=== PATIENT | female | born 1970 | race Caucasian/White ===

== ENCOUNTER 2020-08-24 11:28 | Outpatient (CLI) | payer OTHER, SELFPAY ==
--- NOTE | 2020-08-24 11:34 | MM_ITS ---
WS: [id number] BILATERAL DIGITAL SCREENING MAMMOGRAPHY WITH CAD CLINICAL INFORMATION: SCREENING HISTORY: Screening mammogram. No current complaints. COMPARISON: March 2011 TECHNIQUE: Bilateral CC and MLO views. FINDINGS: The breasts are composed of heterogeneous fibroglandular density tissue, which can limit the detectio n of small underlying mass lesions. No suspicious mass, asymmetry, calcifications, or architectural d istortion. No evidence of malignancy. A few punctate calcifications. MM/[place] [id number] IMPRESSION: BI-RADS: 2-Benign FOLLOW UP: 1 Year Follow-up Recommend return to annual screening mammography.
== END 2020-08-24 11:29 | disposition home or self-care (01) ==
LOC: RADSHAW 11:33
PROVIDERS: Family Provider Nurse Practitioner Family; PCP Nurse Practitioner Family; Visit Provider Nurse Practitioner Women's Health
DX: Z12.31 Encounter for screening mammogram for malignant neoplasm of breast (principal)
CPT/HCPCS: 77067

== ENCOUNTER → 2020-08-30 13:50 | Outpatient (BNVA) | payer OTHER, SELFPAY | PROVIDERS: Family Provider Nurse Practitioner Family; PCP Nurse Practitioner Family; Visit Provider Nurse Practitioner Women's Health | DX: N91.2 Amenorrhea, unspecified (principal) | CPT/HCPCS: 82670; 83001; 88175 ==

== ENCOUNTER 2023-09-18 14:32 | Outpatient (CLI) | payer SELFPAY ==
--- NOTE | 2023-09-18 14:39 | XR_ITS ---
WS: [id number] SCREENING DEXA SCAN [employer] CLINICAL INFORMATION: CURRENT USE OF STEROID/OSTEOPENIA COMPARISON: None. FINDINGS: The L1-L4 bone mineral density measures 1.196 g/cm2. This corresponds to a T score score of 0.1 and Z score of 1.3. Left femoral neck bone mineral density measures 0.905 g/cm2. This corresponds to a T score of -0.8 an d Z score of 0.1. Right femoral neck bone mineral density measures 0.905 g/cm2. This corresponds to a T score -0.8of an d Z score of 0.1. Mean femoral neck bone mineral density measures 0.905 g/cm2. This corresponds to a T score of -0.8 an d Z score of 0.1. XR/XR DEXA axial skeleton* [id number] IMPRESSION: Normal bone mineralization. Patient's FRAX calculated 10 year probability for major osteoporotic fracture i s 11.9% and osteoporotic hip fracture is 1.8%.
== END 2023-09-18 14:33 | disposition home or self-care (01) ==
LOC: RAD 14:32
PROVIDERS: Family Provider Nurse Practitioner Family; PCP Nurse Practitioner Family; Visit Provider Internal Medicine Rheumatology
DX: Z79.52 Long term (current) use of systemic steroids (principal)
CPT/HCPCS: 77080

== ENCOUNTER 2024-05-13 14:59 | Outpatient (CLI) | payer SELFPAY ==
--- NOTE | 2024-05-13 15:09 | MRR_ITS ---
PROCEDURE INFORMATION: Exam: MR Left Lower Extremity Other Than Joint Without Contrast; Foot Exam date and time: 05/13/2024 3:15 PM Age: 53 years old Clinical indication: Pain; Foot; Left; Additional info: Metatarsalgia, left foot TECHNIQUE: Imaging protocol: Magnetic resonance imaging of the left lower extremity without contrast. Exam focused on the foot. COMPARISON: Nuclear medicine whole-body bone scan 08/27/2017, CR XR foot LT min 3V* [id number] 08/13/2017 1:21 PM FINDINGS: Bones/joints: Normal osseous alignment. No acute fracture. Moderate patchy bone marrow edema in the shaft and head of the 4th metatarsal, base of the proximal 4th phalanx, and in the posterosuperior calcaneus is present without acute fracture. These ridges of bone marrow edema characterized by hyperintensity on the fluid sensitive sequences. Corresponding T1 hypointensity is identified only in the 4th metatarsal head where it is moderate on series 701, image 26. The articular cartilage is intact. No significant joint effusion. A moderate 4th metatarsophalangeal joint effusion is noted, containing a mild degree of abnormal intermediate signal intensity material likely representing synovial thickening. LIGAMENTS: Lisfranc ligament: Unremarkable. No evidence of tear. TENDONS: Flexor tendons of foot: Unremarkable. No evidence of tear. Tibialis posterior tendon: Unremarkable as visualized. Peroneal tendons: Unremarkable as visualized. Extensor tendons of foot: Unremarkable. No evidence of tear. Tibialis anterior tendon: Unremarkable as visualized. Achilles tendon: There is moderate edema of the pre Achilles fat pad. Normal appearance of the Achilles tendon. Tarsal canal (Sinus tarsi): Unremarkable. Tarsal tunnel: Unremarkable. Soft tissues: Mild subcutaneous edema throughout the forefoot is present. Mild interosseous muscle edema is noted between the distal aspect of the 3rd and 4th and 4th and 5th metatarsals. Plantar fascia: Unremarkable as visualized. MR/MR foot LT wo con* [id number] IMPRESSION: 1. No acute fracture. 2. Bone marrow edema in the shaft and head of the 4th metatarsal, base of the proximal 4th phalanx and in the posterosuperior aspect of the calcaneus is noted, which can be related to bone contusions, stress changes or inflammatory arthropathy. Osteomyelitis is not favored but cannot be entirely excluded in the region of the 4th metatarsal head in the appropriate clinical setting. 3. Fourth metatarsophalangeal joint effusion with nonspecific appearing probable synovitis, which can be related to trauma or inflammatory arthropathy. 4. Moderate edema in the pre Achilles fat pad, likely reactive to the bone marrow edema in the calcaneus. 5. Mild forefoot subcutaneous edema present without evidence of a discrete fluid collection. 6. Mild interosseous muscular edema is noted between the distal 3rd and 4th and 4th and 5th metatarsals, suggestive of strain, contusion or myositis.
== END 2024-05-13 15:00 | disposition home or self-care (01) ==
LOC: RAD 15:00
PROVIDERS: Family Provider Nurse Practitioner Family; PCP Nurse Practitioner Family; Visit Provider Internal Medicine Rheumatology
DX: M77.42 Metatarsalgia, left foot (principal); M25.475 Effusion, left foot
CPT/HCPCS: 73718

== ENCOUNTER → 2024-06-17 11:50 | Outpatient (BNVA) | payer SELFPAY | PROVIDERS: Family Provider Nurse Practitioner Family; PCP Nurse Practitioner Family; Visit Provider Nurse Practitioner Women's Health | DX: Z78.0 Asymptomatic menopausal state (principal); N94.9 Unspecified condition associated with female genital organs and menstrual cycle | CPT/HCPCS: 82670; 84315 ==

== ENCOUNTER 2025-01-09 12:59 | Outpatient (CLI) | payer SELFPAY ==
--- NOTE | 2025-01-09 | MM_ITS ---
WS: [id number] Bilateral screening 3D tomosynthesis digital mammogram, 01/09/2025 1:04 PM Clinical Data: ANNUAL SCREENING Comparison: 08/24/2020, 03/31/2011, 03/06/2011. Findings: No spiculated masses or clustered calcifications are seen. There are no secondary signs of carcinoma. MM/MM scr BI tomosynthesis [id number] Impression: Negative bilateral mammogram unchanged. Recommend annual screening mammograms. BIRADS: 1 - Negative FOLLOW UP: 1 Year Follow-up DENSITY: The breasts are heterogeneously dense, which may obscure small masses. The CAD design checker was used
== END 2025-01-09 13:00 | disposition home or self-care (01) ==
LOC: RAD 13:00
PROVIDERS: Family Provider Nurse Practitioner Family; PCP Nurse Practitioner Family; Visit Provider Nurse Practitioner
DX: Z12.31 Encounter for screening mammogram for malignant neoplasm of breast (principal); R92.333 Mammographic heterogeneous density, bilateral breasts
CPT/HCPCS: 77063; 77067